=== PATIENT | female | born 1995 ===

== ENCOUNTER → 2025-03-15 | Outpatient (REF) | payer OTHER ==
[2025-03-15 14:55] LABS: Trichomonas vaginalis (AMP) NOT DETECTED (NEGATIVE)
[2025-03-15 15:19] LABS: GC DNA AMPLIFICATION NEGATIVE (NEGATIVE)
[2025-03-15 15:58] LABS: TOTAL 25(OH) VITAMIN D 12.8 NG/ML (20.0-100.0)
[2025-03-15 16:23] LABS: HIV 1&2 SCREEN NEGATIVE (NEGATIVE)
[2025-03-15 16:30] LABS: HEPATITIS C VIRUS ABY INDEX < 0.02 INDEX (<0.8)
[2025-03-15 16:36] LABS: ALT/SGPT 33 U/L (7.0-40); AST/SGOT 20 U/L (<34); CALCIUM LEVEL 9.9 MG/DL (8.5-10.1); CARBON DIOXIDE LEVEL 30 MMOL/L (20-31); CHLORIDE LEVEL 103 MMOL/L (98-107); CHOLESTEROL LEVEL 199 MG/DL (<200); CHOLESTEROL RISK RATIO 3.22 (<5); CREATININE FOR GFR 0.71 MG/DL (0.55-1.30); GLOMERULAR FILTRATION RATE > 90.0 (>60); LDL CHOLESTEROL 101.0 MG/DL (<100); NON-HDL-C 137.2 MG/DL; POTASSIUM SERUM 4.6 MMOL/L (3.5-5.1); SODIUM LEVEL 139 MMOL/L (136-145); TRIGLYCERIDES LEVEL 181 MG/DL (<150)
[2025-03-15 19:43] LABS: ESTIMATED AVERAGE GLUCOSE 105.0 MG/DL (60-110)
== END ==
LOC: M LAB REF 12:37
PROVIDERS: ATTEND Physician Assistant
DX: E55.9 Vitamin D deficiency, unspecified (principal); Z11.9 Encounter for screening for infectious and parasitic diseases, unspecified; E66.9 Obesity, unspecified

== ENCOUNTER → 2025-05-24 | Outpatient (REF) | payer OTHER ==
[2025-05-24 15:14] LABS: THYROGLOBULIN ANTIBODY 21.0 U/ML (<60.0); THYROID PEROXIDASE ANTIBODY 42.0 U/ML (<60.0)
[2025-05-24 15:15] LABS: FREE T4 1.21 NG/DL (0.89-1.76)
== END ==
LOC: M LAB REF 13:40
PROVIDERS: ATTEND Physician Assistant
DX: R79.89 Other specified abnormal findings of blood chemistry (principal)

== ENCOUNTER → 2025-05-31 | Outpatient (REF) | payer OTHER ==
[2025-06-02 13:52] LABS: HPV APTIMA Not Detected (Not Detected)
== END ==
LOC: M LAB REF 13:08
PROVIDERS: ATTEND Physician Assistant
DX: Z12.4 Encounter for screening for malignant neoplasm of cervix (principal)
CPT/HCPCS: 87624; G0123